=== PATIENT | male | born 1975 | race Caucasian/White ===

== ENCOUNTER → 2020-01-20 11:38 | Outpatient (CLI) | payer BC, SELFPAY ==
[2020-01-12 08:47] VITALS: BMI 31.8
--- NOTE | 2020-01-20 11:46 | RAD_ITS ---
STUDY: X-RAY - ACUTE ABDOMINAL SERIES REASON FOR EXAM: Male, 44 years old. Abdominal pain TECHNIQUE: Single view of the chest. Supine, and decubitus view(s) of the abdomen were obtained. COMPARISON: 11/07/2010. FINDINGS: The lungs are clear and expanded. Normal size heart. Normal mediastinum and sami. Normal visualized pulmonary arteries. Normal visualized aortic arch and descending thoracic aorta. There is a non-specific bowel gas pattern. The soft tissue structures of the abdomen and pelvis are unremarkable. Normal visualized osseous structures. RAD/Acute Abdomen Inc Chest IMPRESSION: Normal x-ray examination of the chest, abdomen, and pelvis. Electronically Signed: Angel Medina MD at 17:54 EST , Service support ,
[2020-01-20 15:17] LABS: Absolute Lymphocyte Count 2.71 X10^3/uL (0.83-4.51); Absolute Neutrophil Count 4.8 X10^3/uL (2.0-7.7); Basophil# 0.11 X10^3/uL; Basophil% 1.2 % (0-1); Eosinophils% 5.6 % (0-5); Hematocrit 48.8 % (40-54); Hemoglobin 16.3 g/dL (13.0-16.5); Lymphocyte # 2.71 X10^3/ul (4.0); Lymphocyte % 30.4 % (19-41); Mean Corp Hgb Conc 33.4 g/dL (32-36); Mean Corpuscular Hgb 30.1 pg (27.0-32.0); Mean Platelet Vol. 10.6 fl (6.2-12.0); Monocyte# 0.73 X10^3/uL; Monocyte% 8.2 % (0-10); NRBC Flagged by Analyzer 0 % (0-5); Neutrophil # 4.83 X10^3/uL (2.7-7.7); Neutrophil % 54.2 % (47-70); Platelet Count 384 K/mm3 (150-450); RBC Distribution Width CV 11.9 % (11.6-14.6); RBC Distribution Width SD 39.2 fl (35.1-43.9); Red Blood Count 5.42 M/mm3 (4.6-6.2); White Blood Count 8.9 K/mm3 (4.4-11.0)
[2020-01-20 15:36] LABS: ALB/GLOB Ratio 0.9 RATIO (0.9-2.4); AST(SGOT) 9 U/L (15-37); Alanine Aminotransfer ALT/SGPT 32 U/L (16-61); Albumin, Serum 4.2 g/dL (3.2-5.0); Alkaline Phosphatase 105 U/L (45-117); Anion Gap 8 (5-15); BUN 13 mg/dL (7-18); BUN/Creat Ratio 11.9 RATIO (10-20); Calcium,Total 9.5 mg/dL (8.5-10.1); Chloride 104 mmol/L (98-107); Creatinine, Serum 1.09 mg/dL (0.70-1.30); EST Glomerular Filtration Rate 78 mL/min (>60); Est Glom Filt Rate - Afr Amer 94 mL/min (>60); Globulin 4.7 g/dL (2.2-4.2); Glucose 81 mg/dL (74-106); Magnesium 2.1 mg/dL (1.6-2.6); Potassium 3.8 mmol/L (3.5-5.1); Protein, Total 8.9 g/dL (6.4-8.2); Sodium Level 139 mmol/L (136-145)
== END ==
LOC: MTLAB 11:41
PROVIDERS: PCP Family Medicine; Referring Provider Family Medicine; Visit Provider Family Medicine
DX: R10.9 Unspecified abdominal pain (principal); R19.7 Diarrhea, unspecified
CPT/HCPCS: 36415; 74022; 80053; 83735; 85025

== ENCOUNTER → 2020-02-03 15:53 | Outpatient (CLI) | payer BC, SELFPAY ==
[2020-01-12 08:47] VITALS: BMI 31.8
[2020-02-05 16:08] LABS: Endomysial Antibody IgA Negative (Negative)
[2020-02-05 21:27] LABS: Immunoglobulin A 229 mg/dL (90-386); t-Transglutaminase IgA <2 U/mL (0-3)
[2020-02-07 03:06] LABS: Beef <0.10 kU/L (Class 0); Corn <0.10 kU/L (Class 0); Egg, Whole <0.10 kU/L (Class 0); Milk (Cow) <0.10 kU/L (Class 0); Peanut <0.10 kU/L (Class 0); Pork <0.10 kU/L (Class 0); Soybean <0.10 kU/L (Class 0); Wheat <0.10 kU/L (Class 0)
[2020-02-07 10:35] LABS: Chocolate <0.10 kU/L (Class 0)
== END ==
LOC: MFPLAB 15:54
PROVIDERS: PCP Family Medicine; Referring Provider Family Medicine; Visit Provider Family Medicine
DX: R19.7 Diarrhea, unspecified (principal); R14.0 Abdominal distension (gaseous)
CPT/HCPCS: 36415; 82784; 83516; 86003; 86005; 86255

== ENCOUNTER 2020-02-04 19:35 | Emergency (ER) | payer BC, SELFPAY ==
[2020-01-12 08:47] VITALS: BMI 31.8
[2020-02-04 19:36] VITALS: BP 145/91; PULSE 83; RESP 16; TEMP 36.1; O2SAT 99; BMI 31.3
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
[2020-02-04 20:37] VITALS: BP 134/74; PULSE 80; RESP 18; O2SAT 98
== END 2020-02-04 20:38 | disposition home or self-care (01) ==
PROVIDERS: Emergency Provider Emergency Medicine; PCP Family Medicine
DX: S43.401A Unspecified sprain of right shoulder joint, initial encounter (principal); X58.XXXA Exposure to other specified factors, initial encounter; Y93.72 Activity, wrestling; Y92.9 Unspecified place or not applicable; Z87.891 Personal history of nicotine dependence
CPT/HCPCS: 73000; 99283

== ENCOUNTER → 2020-02-06 06:44 | Outpatient (CLI) | payer BC, SELFPAY ==
[2020-01-12 08:47] VITALS: BMI 31.8
[2020-02-04 19:36] VITALS: BMI 31.3
--- NOTE | 2020-02-06 06:45 | CT_ITS ---
STUDY: CT ABDOMEN AND PELVIS WITH CONTRAST REASON FOR EXAM: Male, 44 years old. 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 No prior surgery. RADIATION DOSAGE (If Supplied By Facility): CTDIvol = ( 20.09 ) mGy, DLP = ( 1240.70 ) mGycm TECHNIQUE: Transaxial images were obtained from the dome of the diaphragm to the symphysis pubis with oral contrast. Oral and amp; IV Readi-CAT and amp; 100mL Isovue-300 was administered. Sagittal and coronal images were reconstructed. Individualized dose optimization techniques were used for this CT. COMPARISON: None. FINDINGS: The visualized lung bases are unremarkable. The visualized portions of the heart are within normal limits. Normal liver. There are multiple small gallstones. Normal spleen. Normal pancreas. Normal bilateral adrenal glands. Normal right kidney. Normal left kidney. There is a small hiatal hernia. Normal small intestine. There are scattered colonic diverticula consistent with diverticulosis. Is evidence of a 16 of the wall of the sigmoid colon. This may represent either mild degree of bone diverticulitis or inflammatory bowel disease. Clinical correlation is recommended. The appendix is visualized and appears normal. There is scattered atherosclerotic calcification of the abdominal aorta, without a demonstrated aneurysm. Normal inferior vena cava. Normal retroperitoneum. Normal urinary bladder. There are central prostatic calcifications. Normal abdominal wall. There are degenerative changes of the visualized lumbar spine. CT/Abdomen/Pelvis WITH Contrast IMPRESSION: Multiple small gallstones. Sigmoid diverticulosis with thickening of the sigmoid wall suggestive of either mild diverticulitis or inflammatory bowel disease. Electronically Signed: Masood Holly, at 8:26 EST , Service support ,
== END ==
PROVIDERS: PCP Family Medicine; Referring Provider Family Medicine; Visit Provider Family Medicine
DX: R19.8 Other specified symptoms and signs involving the digestive system and abdomen (principal)
CPT/HCPCS: 74177; Q9967

== ENCOUNTER 2020-03-18 09:00 | Outpatient (RCR) | payer BC, SELFPAY ==
--- NOTE | 2020-03-03 17:36 | HP.PTEVAL_ITS ---
Patient's Visit Information KOSTAS HENDRIX Jr. is a 44 year old M referred to Physical Therapy by Dr. Rachel Santa DO with a diagnosis of R SC sprain/SCM pain. Date of Evaluation: 03/03/20 Physical Therapist: DAJUAN Roach - Visit Plan Frequency: 3x /Week Duration: 4 Weeks Plan: 3X/ week for 3-4 weeks for manual therapy to the SCM, mid trap and scapular area to tolerance, AAROM of the R shoulder, postural exercises and RC strength as tolerated, modalities for pain control, US, E-stim per order if needed for pain control with HEP - Subjective Pt has pain in his shoulder and where collar bone connects to the sternum. He was wrestling and felt a pop and could not breathe on Feb 02. He firgured it was muscles. He was in pain and ended up in the ER the next night. He had sharp and searing pain. They took x-rays and said no dilocation and took more x-rays yesterday. She wants an MRI but has to do PT first. He wants to sleep, shave his head, and sit without pain. He can not sit in one spot for a long time and increases his TAPIA. He can not reach too far behind his back. She feels there are some muscl tears where they meet her collar bone and will need an MRI. He has no appt scheduled until after PT. He is off work through the month as he lifts 50# weights repetitivly. He wears a sling because if her lets his arm hang he gets increase pain. He can not sleep on his R side. He wakes up as soon as he moves at night. He is L handed. Pt feels like he is choking sometimes in the middle of the night. He reports that he has a hard time swallowing. - Pain R shoulder pain. Pain Intensity (Out of 10): 5 Pain Intensity Range: 7 - Objective C-spine AROM: flexion 100% (increase pain), Extension 25% (increase pain), SB B 50% increase pain shoulder blade to the R and chest pain to the L, R rotaion 75% and L rotation 75% with increase sternum pain. 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 R shoulder flexion approx 160 degrees but increase pain, horizontal abd able to touch the other shoulder but barely, Abduction to approx 170 and incease pinching at end range, IR PSIS, ER 31 degrees. L shoulder AROM: full flexion, abd, IR to T8, ER 40 degrees, Full horizontal shoulder adduction. R shld flex 4-/5 (therapist did not use full pressure), R shld abd 3+/5 ( increase anterior chest pain and shoulder pain), ER and IR 4/5 with increase sternum pain. R SC joint seems higher than the L.... R SC joint is extremely painful to the touch. - Goals Goal 1:: I HEP Goal Time Frame: 4-6 Weeks Goal 2:: Be able to raise R arm full elevation (flexion and abduction) without pain Goal Time Frame: 4-6 Weeks Goal 3:: Be able to sleep through the night without pain Goal Time Frame: 4-6 Weeks Goal 4:: Pt to have full c-spine AROM without SC joint or scapular pain Goal Time Frame: 4-6 Weeks Goal 5:: Be able to walk around and complete ADL's without the need for the sling for arm support Goal Time Frame: 4-6 Weeks - Rehabilitation Potential Rehabilitation Potential: Good - Anticipated Interventions Patient/Client Instruction: Educate patient on: Condition, Plan of Care For the Purpose of:: To decrease pain, To decrease swelling/inflammation, To increase ROM, To improve nutrient delivery to tissue, To improve muscle performance and motor function, To improve ability to perform ADL's, To increase tolerance to activity/condition/position, To improve performance and independence with ADL's, To decrease level of supervision to perform tasks, To improve ability of physical actions for home/community/work/leisure, To improve health of tissue, To decrease soft tissue restriction, To increase flexibility/ROM Therapeutic Exercise to Include: Strength training, Postural training, Flexibilty training, Passive ROM, Active ROM, Scapular Strength/Stabilization For the Purpose of:: To decrease pain, To decrease swelling/inflammation, To increase ROM, To improve nutrient delivery to tissue, To improve muscle performance and motor function, To improve ability to perform ADL's, To increase tolerance to activity/condition/position, To improve performance and independence with ADL's, To decrease level of supervision to perform tasks, To improve ability of physical actions for home/community/work/leisure, To improve health of tissue, To decrease soft tissue restriction, To increase flexibility/ROM Manual Therapy Techniques to Include: Passive ROM, Soft tissue mobilization For the Purpose of:: To decrease pain, To increase ROM, To improve nutrient delivery to tissue, To improve muscle performance and motor function IF ES: Yes Cryotherapy (ice pack, ice massage): Yes Thermo therapy (hot pack): Yes Ultrasound (thermal/non thermal): Yes For the Purpose of:: To decrease pain, To decrease swelling/inflammation, To increase ROM, To improve nutrient delivery to tissue, To improve muscle performance and motor function Thank you for the opportunity to evaluate your patient. For Medicare and Medicare HMO plans, please review the plan of care and approve it. It will need to be FAXED BACK to us at [phone] for Medicare purposes. For Medicare only, by signing this I certify the plan of care. Please let me know if there are questions or concerns regarding this plan of care. Physician Signature: Date:
--- NOTE | 2020-04-27 10:55 | HP.PT.NRP ---
KOSTAS HENDRIX was seen in my office for initial evaluation on 03/03/20. The following Plan of Care was established for this patient: Initial Frequency: 3x /Week Initial Duration: 4 Weeks Patient/Client Instruction: Educate patient on: Condition, Plan of Care For the Purpose of:: To decrease pain, To decrease swelling/inflammation, To increase ROM, To improve nutrient delivery to tissue, To improve muscle performance and motor function, To improve ability to perform ADL's, To increase tolerance to activity/condition/position, To improve performance and independence with ADL's, To decrease level of supervision to perform tasks, To improve ability of physical actions for home/community/work/leisure, To improve health of tissue, To decrease soft tissue restriction, To increase flexibility/ROM Therapeutic Exercise to Include: Strength training, Postural training, Flexibilty training, Passive ROM, Active ROM, Scapular Strength/Stabilization For the Purpose of:: To decrease pain, To decrease swelling/inflammation, To increase ROM, To improve nutrient delivery to tissue, To improve muscle performance and motor function, To improve ability to perform ADL's, To increase tolerance to activity/condition/position, To improve performance and independence with ADL's, To decrease level of supervision to perform tasks, To improve ability of physical actions for home/community/work/leisure, To improve health of tissue, To decrease soft tissue restriction, To increase flexibility/ROM Manual Therapy Techniques to Include: Passive ROM, Soft tissue mobilization For the Purpose of:: To decrease pain, To increase ROM, To improve nutrient delivery to tissue, To improve muscle performance and motor function IF ES: Yes Cryotherapy (ice pack, ice massage): Yes Thermo therapy (hot pack): Yes Ultrasound (thermal/non thermal): Yes For the Purpose of:: To decrease pain, To decrease swelling/inflammation, To increase ROM, To improve nutrient delivery to tissue, To improve muscle performance and motor function This patient was last seen in our office 03/18/20. Pertinent comments regarding their Physical therapy will appear below: [facility] PT as pt did not schedule any appointments in 2020 At this point I will be discontinuing this patient from physical therapy. I would be happy to see this patient again in the future if found appropriate by the physician. Thank you! Angelic Ortiz, MPT
== END 2020-03-18 19:00 | disposition home or self-care (01) ==
LOC: PT 09:00
PROVIDERS: PCP Family Medicine; Referring Provider Orthopaedic Surgery; Visit Provider Orthopaedic Surgery
DX: S43.61XD Sprain of right sternoclavicular joint, subsequent encounter (principal)
CPT/HCPCS: 97035; 97110; 97140; 97161

== ENCOUNTER → 2020-03-31 06:28 | Outpatient (CLI) | payer BC, SELFPAY ==
--- NOTE | 2020-03-31 06:30 | MRI_ITS ---
STUDY: MRI RIGHT UPPER EXTREMITY (ATTENTION RIGHT STERNOCLAVICULAR JOINT, CLAVICLE, SCAPULA) REASON FOR EXAM: Pain of right scapula, clavicle and sternoclavicular joint, injury 02/03/2020 TECHNIQUE: Standardized fat and water weighted pulse sequences were obtained in all 3 orthogonal planes. COMPARISON: Radiographs 03/02/2020. FINDINGS: There is a sprain of the right sternoclavicular joint capsule (inversion recovery axial images 16, 17) without joint effusion or subluxation. There is a subchondral bone contusion of the right sternum and a mild subchondral bone contusion of the proximal right clavicle (inversion recovery coronal image 30). Otherwise, unremarkable right clavicle. Normal right acromioclavicular joint. Normal right scapula and periscapular musculature. Normal visualized proximal right humerus and right glenohumeral articulation. There is no demonstrated right rotator cuff tear. There is a lower cervical disc bulge (T2 sagittal images 32-34). MRI/Upper Ext/No Jt/ wo IMPRESSION: Sprain of the right sternoclavicular joint capsule with subchondral bone contusions of the right sternum and proximal right clavicle. Electronically Signed: Buddy Lovelace MD at 8:37 EST Tel , Service support ,
== END ==
PROVIDERS: PCP Family Medicine; Referring Provider Orthopaedic Surgery; Visit Provider Orthopaedic Surgery
DX: M54.2 Cervicalgia (principal); S43.61XD Sprain of right sternoclavicular joint, subsequent encounter
CPT/HCPCS: 73218

== ENCOUNTER 2020-05-11 12:39 | Outpatient (RCR) | payer BC, SELFPAY ==
--- NOTE | 2020-05-11 14:37 | HP.OTFCE_ITS ---
Floor (Occasional 1-33% of Day): 55# Floor (Frequent 34-66% of Day): 25# Floor (Constant 67-100% of Day): 10# Floor PDL: Medium Knee (Occasional 1-33% of Day): 55# Knee (Frequent 34-66% of Day): 25# Knee (Constant 67-100% of Day): 10# Knee PDL: Medium Waist (Occasional 1-33% of Day): 55# Waist (Frequent 34-66% of Day): 25# Waist (Constant 67-100% of Day): 10# Waist PDL: Medium Shoulder (Occasional 1-33% of Day): 45# Shoulder (Frequent 34-66% of Day): 22# Shoulder (Constant 67-100% of Day): 9# Shoulder PDL: Medium Overhead (Occasional 1-33% of Day): 35# Overhead (Frequent 34-66% of Day): 18# Overhead (Constant 67-100% of Day): 7# Overhead PDL: Light-Medium Comments: pt demo good lifting mechanics with all lift levels Bending: Frequent Ability (34-66% of day) Squatting: Frequent Ability (34-66% of day) Kneeling: Frequent Ability (34-66% of day) Reaching out: Frequent Ability (34-66% of day) Reaching up: Frequent Ability (34-66% of day) Sitting: Frequent Ability (34-66% of day) Walking: Frequent Ability (34-66% of day) Standing: Frequent Ability (34-66% of day) Duration Sedentary Sedentary Light Light Light Medium Medium Medium Heavy Very Heavy Heavy Occasional (0-33% of day) Frequent (34-66% of day) Constant (67-100% of day) 10 # Negligible Negligible 15 # 8 # Negligible 20 # 10# Negli. 35 # 18 # 7 # 50 # 25 # 10 # 75 # 100 # >100 # 38 # 50 # >50 # 15 # 20 # >20 # Height: 1.7 m Weight:: 90.718 kg Hand Dominance: left Medical History Including Restrictions: This 44 year old male was seen for OT for a FCE. Pt states he was in good health until he had a right shoulder injury. 2019. Pt states he injured his arm wrestling a teen. pt states he went to the ER the next day. pt states xray was taken with no fx. pt states he went through 3 weeks of physical therapy without a change in his progress- pt had MRI that indicated a sprain of the right sternoclavicular joint capsule with subchondral bone contusions of the right sternum and proximal right clavicle. pt states he does continue with stretching to decrease tightness but no other exercises. Diagnoses: Sprain of right sternoclavicular joint 2019. Symptoms: Tightness of upper scapula that radiates up his neck to the skull and gives him minor headachs. pt states he trys to roll his neck to losen the muscle Pain: Pt states pain is 2/10 currently. Pt states pain increases to 5/10 Work History: Pt is employed at [employer] pt states he has worked there for three years. 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 Pt states he worked an average 52-60 hours and worked 7 days a week. Pt states his job requires 45-55#. pt states he states he stands and lifts parts and picking up and moving to the side- pt has concerns with his ability to perform the quality of work. Behavioral: Pt is cooperative and put good effort into the assessment. ADLS: Pt states he is a single father of 3 children ages 21/18/16/ lives in a two-story home. Pt states he has three entry steps. Pt states his bedroom and bathroom is on 2nd floor. pt states he is JUAN with showering, pt states he is ind. with dressing. pt states he can do dishes, clean, and carry laundry. pt drives ind. and he states he can perform grocery shopping. pt states lifting with left pulls, but not as much pain in bones. ROM: pt currently is not demo with limited ROM of cervical, thoracic, lumbar, UE and LE ROM. Strength: PT demo with MMT at 5/5 in UB and LB bilaterally throughout. Right Circulation Sales Representative Strength Average: 89.33 Right Circulation Sales Representative Strength Percentile: 11% Left Circulation Sales Representative Strength Average: 94.66 Left Circulation Sales Representative Strength Percentile: 24% Right Lateral Pinch Average: 23.33 Right Lateral Pinch Percentile: 75% Left Lateral Pinch Average: 20.00 Left Lateral Pinch Percentile: 50% Right Tripod Pinch Average: 20.00 Right Tripod Pinch Percentile: 50% Left Tripod Pinch Average: 22.00 Left Tripod Pinch Percentile: 75% Sensation: denies Fine Motor: denies Balance: no loss of balance Bending: Pt demo the ability to bend forward three times, ten times and ten times rapidly. pt can bend forward on a frequent ability. Squatting: pt demo the ability to squat three times, ten times and ten times rapidly. pt can squat on a frequent ability. Kneeling: pt demo the ability to kneel three times, ten times and ten rapidly. pt did c/o of muscles burning from the tasks. Reaching out/up: pt demo the ability to reach out/up three times, ten times and ten times rapidly. pt states he did become SOB but reports no physical activity since he hurt his shoulder. Walking: no concerns with ambulation- can walk on a frequent ability. Standing: no concners with standing - pt can stand on a frequent ability. Sitting: pt demo the ability to sit for 40 min with no expressed or apparent discomfort. pt can sit on a frequent ability Climbing Stairs: no issues with stairs. pt ascended and descended 10 steps with a reciprocal step pattern and no use of rails. Floor Lift: Pt demo the ability to lift 55# from floor level with good lifting mechanics Knee Lift: Pt demo the ability to lift 55# from knee level with good lifting mechanics Waist Lift: Pt demo the ability to lift 55# from waist level with good lifting mechanics Shoulder Lift: Pt demo the ability to lift 45# from shoulder level with good lifting mechanics Overhead Lift: Pt demo the ability to lift 35# from overhead level with good lifting mechanics Carrying: pt demonstrated the ability to carry 35# for 40 feet with good ability. Comments: pt tolerated assessment well- had no c/o of pain. reported upper trap felt tight but nothing he felt would limit him with his job.
--- NOTE | 2020-05-11 14:37 | HP.OTFCE.D ---
FCE D/C Summary - Discharge KOSTAS HENDRIX Jr. was seen for a one time visit for an FCE on 05/11/20 and is discharged.
== END 2020-05-11 19:00 | disposition home or self-care (01) ==
LOC: OT 12:39
PROVIDERS: PCP Family Medicine; Visit Provider Orthopaedic Surgery
DX: S43.61XD Sprain of right sternoclavicular joint, subsequent encounter (principal)
CPT/HCPCS: 97750

== ENCOUNTER → 2020-09-17 10:05 | Outpatient (CLI) | payer BC, SELFPAY ==
[2020-09-17 12:25] LABS: Absolute Lymphocyte Count 2.43 X10^3/uL (0.83-4.51); Absolute Neutrophil Count 5.8 X10^3/uL (2.0-7.7); Basophil% 1.1 % (0-1); Eosinophil# 0.33 X10^3/uL; Eosinophils% 3.6 % (0-5); Hematocrit 43.7 % (40-54); Hemoglobin 14.6 g/dL (13.0-16.5); Lymphocyte # 2.43 X10^3/ul (0.83-4.51); Lymphocyte % 26.4 % (19-41); Mean Corp Hgb Conc 33.4 g/dL (32-36); Mean Corpuscular Hgb 30.2 pg (27.0-32.0); Mean Corpuscular Volume 90.5 fL (80-94); Mean Platelet Vol. 10.3 fl (6.2-12.0); Monocyte# 0.57 X10^3/uL; Monocyte% 6.2 % (0-10); NRBC Flagged by Analyzer 0 % (0-5); Neutrophil # 5.76 X10^3/uL (2.7-7.7); Neutrophil % 62.5 % (47-70); Platelet Count 386 K/mm3 (150-450); RBC Distribution Width CV 11.9 % (11.6-14.6); RBC Distribution Width SD 39.6 fl (35.1-43.9); Red Blood Count 4.83 M/mm3 (4.6-6.2); White Blood Count 9.2 K/mm3 (4.4-11.0)
[2020-09-17 12:30] LABS: Vitamin B12 344 pg/mL (211-911); Vitamin D,25 Hydroxy 20.7 ng/mL
[2020-09-17 13:02] LABS: AST(SGOT) 11 U/L (15-37); Alanine Aminotransfer ALT/SGPT 24 U/L (16-61); Albumin, Serum 3.8 g/dL (3.2-5.0); Alkaline Phosphatase 97 U/L (45-117); Anion Gap 5 (5-15); BUN 10 mg/dL (7-18); BUN/Creat Ratio 11.2 RATIO (10-20); Chloride 105 mmol/L (98-107); Creatinine, Serum 0.89 mg/dL (0.70-1.30); EST Glomerular Filtration Rate 98 mL/min (>60); Est Glom Filt Rate - Afr Amer 118 mL/min (>60); Globulin 3.9 g/dL (2.2-4.2); Glucose 95 mg/dL (74-106); Potassium 4.7 mmol/L (3.5-5.1); Protein, Total 7.7 g/dL (6.4-8.2); Sodium Level 138 mmol/L (136-145); T4 Free Direct 0.95 ng/dL (0.76-1.46); Thyroid Stim Hormone (TSH) 1.43 uIU/mL (0.358-3.74)
== END ==
LOC: MFPLAB 10:06
PROVIDERS: PCP Family Medicine; Visit Provider Family Medicine
DX: R53.83 Other fatigue (principal)
CPT/HCPCS: 36415; 80053; 82306; 82607; 84439; 84443; 85025

== ENCOUNTER 2021-03-22 16:22 | Outpatient (CLI) | payer BC, SELFPAY | END 2021-03-22 23:59 | disposition short-term general hospital (02) | PROVIDERS: PCP Family Medicine; Referring Provider Family Medicine; Visit Provider Nurse Practitioner Family | DX: U07.1 COVID-19 (principal) | CPT/HCPCS: 87635; U0003; U0005 ==

== ENCOUNTER 2023-08-04 10:02 | Emergency (ER) | payer OTHER, SELFPAY ==
[2023-08-04 10:02] VITALS: BP 193/107; BP 200/105; PULSE 62; PULSE 71; RESP 14; RESP 18; TEMP 36.1; O2SAT 100; O2SAT 97; BMI 29.4
--- NOTE | 2023-08-04 10:30 | EDS_ITS ---
HPI HPI - GI History of Present Illness Chief Complaint: Abd Pain Detail of Chief Complaint: Left flank pain Informant: patient Abdominal Pain/Flank Pain Current Severity: 12/26 Narrative Narrative: Patient presents to the emergency department complaint of left flank pain that started this morning suddenly. Patient's had vomiting with it. Planes of urinary frequency or feeling like he needs to go and sometimes cannot. Denies any blood in stool. Had normal bowel movement today x 2. Never had pain like this before. He had no fever or chills or sweats. Currently rates pain a 10 out of 10. PFSH PFS Medical History (Updated 08/04/23 @ 12:[address] Marily Logan, DO) Femur fracture Diarrhea Fatigue Home Medications ?Medication ?Instructions ?Recorded ?Last Taken ?Type meloxicam 15 mg tablet (Mobic) 15 mg PO DAILY #21 tabs 04/05/20 Unknown Rx hydrocodone-acetaminophen 5-325mg 1 tab PO Q4H PRN PRN Pain 2 days 08/04/23 Unknown Rx 5mg-325mg #10 TABLETS ondansetron 4 mg disintegrating 4 mg PO Q8H PRN PRN Nausea #10 tabs 08/04/23 Unknown Rx tablet Allergy/AdvReac Type Severity Reaction Status Date / Time No Known Allergies Allergy Verified 08/04/23 10:02 Social History (Updated 04/05/20 @ 13:48 by Heber FONSECA, PA) Smoking Status: Former smoker alcohol intake: never ROS ROS ED Review of Systems ROS Unobtainable: other Constitutional Constitutional ED: Reports lethargy; Denies chills, fever(s), sweats or weight loss Eyes Eyes: Denies blurry vision, change in vision or diplopia ENT ENT ED: Denies rhinorrhea or sore throat Cardiovascular Cardiovascular: Denies chest pain, orthopnea or racing heartbeat Respiratory/Chest Respiratory/Chest: Denies cough, dyspnea, dyspnea on exertion, orthopnea or sputum Gastrointestinal Gastrointestinal: Reports abdominal pain, nausea and vomiting; Denies diarrhea Genitourinary Genitourinary ED: Reports urinary frequency; Denies dysuria or hematuria Musculoskeletal Musculoskeletal: Reports back pain; Denies arthralgias, myalgias or neck pain Integumentary Denies abscess, Abrasions or rash Neurologic Neurologic: Denies headache(s) or weakness Psychiatric Psychiatric: Denies anxiety, depression or suicidal thoughts Endocrine Endocrinology: Denies polydipsia, polyphagia or polyuria Hematologic/Lymphatic Hematologic/Lymphatic: Denies easy bleeding, easy bruising or lymphadenopathy Allergic/Immunologic Allergic/Immunologic ED: Denies mouth swelling, tongue swelling or urticaria EXAM Physical Exam Const Vital Signs: 08/04/23 10:02 08/04/23 10:02 08/04/23 12:02 Temperature 97 F L Temperature Source Temporal Pulse Rate 71 62 58 L Respiratory Rate 14 18 16 Blood Pressure 200/105 H 193/107 H 125/64 H Blood Pressure Mean 136 135 84 Pulse Ox 100 97 98 Oxygen Delivery Method Room Air Room Air Room Air Positive well nourished and well developed General Appearance ED: well developed and NAD HEENT Reports TM's clear and moist mucous membranes normocephalic and atraumatic; Negative for trauma or tenderness Tympanic Membrane ED: Yes TM's clear Eyes PERRL and EOMs intact bilaterally General Eye ED: Negative for pale conjunctiva or scleral icterus Neck no lymphadenopathy, supple and no JVD General: Negative for tenderness Chest Wall inspection of chest normal and palpation of chest normal Chest: Negative for tenderness Resp normal respiratory effort and clear to auscultation bilaterally Effort and Inspection: Negative for respiratory distress or pain with movement Auscultation: Negative for rhonchi, wheezes or diminished lung sounds Cardio regular rate, regular rhythm, S1 normal heart sound, S2 normal heart sound and no murmurs Peripheral Pulses: pulses 2+ throughout GI normal to inspection, nondistended, normoactive bowel sounds, soft to palpation, non-tender, non-distended and no masses GI Narrative: Mild diffuse tenderness over the left lower abdomen with some mild guarding. There is no rebound, rigidity, or pineal signs. No mass palpated. Back/Spine no thoracic nor lumbar tenderness General Back: CVA tenderness left Extremity normal to inspection General Extremety ED: Negative for edema General Extremity: Negative for edema Neuro oriented x3, CN's II-XII intact bilaterally, no sensory deficits noted and gait normal Sensorium / Orientation: awake, alert, oriented to person, oriented to place and oriented to time Motor Exam: strength 5/5 throughout and strength abnormal Psych mental status grossly normal Skin no rashes or lesions noted and no wounds MDM MDM MDM Narrative Medical decision making narrative: Patient presents with sudden onset of severe left-sided flank and abdomen pain. Pain radiates towards his groin. Nausea and vomiting. Clinically suspect likely a kidney stone. Also in the differential would be diverticulitis or other acute intra-abdominal process such as bowel obstruction or bowel perforation. IV line established. Patient was medicated with Zofran and Toradol as well as Dilaudid. Will obtain basic labs as well as urinalysis and a CT scan of the abdomen pelvis to evaluate further. CBC with differential white count 10.1 with hemoglobin of 14 and platelet count 395. Chemistries unremarkable. Urinalysis negative for infection. CT flank obtained showed a 2 mm left distal ureter stone. Patient did well with hydromorphone and Toradol and Zofran and currently is pain-free. Will send home with urine strainers and a prescription for Zofran as well as [place] for severe pain. Advised to return if worsening pain, fever, vomiting, or condition worsen anyway. Will refer to urology for follow-up. Lab Data Attestation: I reviewed the patient's lab results. Labs: Laboratory Results - last 24 hr 08/04/23 08/04/23 10:20 11:52 WBC 10.1 RBC 4.80 Hgb 14.3 Hct 43.5 MCV 90.6 MCH 29.8 MCHC 32.9 RDW Std Deviation 40.2 RDW Coeff of Bill 12.0 Plt Count 395 MPV 9.7 Immature Gran % (Auto) 0.500 Neut % (Auto) 70.4 H Lymph % (Auto) 19.7 [place] % (Auto) 6.3 Eos % (Auto) 2.2 Baso % (Auto) 0.9 Absolute Neuts (auto) 7.1 Absolute Lymphs (auto) 1.99 Nucleated RBC % 0 Sodium 136 Potassium 4.0 Chloride 107 Carbon Dioxide 26.0 Anion Gap 3 L BUN 15 Creatinine 1.05 Estim Creat Clear Calc 89.74 Est GFR (MDRD) Af Amer 97 Est GFR (MDRD) Non-Af 80 BUN/Creatinine Ratio 14.3 Glucose 135 H Calcium 9.1 Urine Color Yellow Urine Clarity Clear Urine pH 5.0 Ur Specific [place] 1.025 Urine Protein 15 H Urine Glucose (UA) Normal Urine Ketones 5 H Urine Occult Blood 50 H Urine Nitrite Negative Urine Bilirubin Negative Urine Urobilinogen Normal Ur Leukocyte Esterase Negative Urine RBC 0 SEEN Urine WBC 0 SEEN Ur Squamous Epith Cells 0 SEEN Urine Bacteria 0 SEEN Urine Mucus 0 SEEN Radiography Diagnostic Testing: Clinical Impression(s) from Imaging Studies Abdomen/Pelvis CT 08/04/23 10:30 IMPRESSION: 1. Obstructive 2 mm distal left ureteral stone. 2. Left nephrolithiasis. 3. Cholelithiasis. Electronically Signed: Anton Trinidad MD at 11:27 EDT , Discharge Plan Triage Chief Complaint: Abd Pain ED Provider: Marily Logan Dx/Rx/DC Orders Clinical Impression: Urolithiasis Instructions: ED Kidney Stone with Pain Prescriptions: New hydrocodone-acetaminophen 5-325 mg tablet 1 tab PO Q4H PRN PRN (Reason: Pain) 2 Days Qty: 10 0RF ondansetron 4 mg tablet,disintegrating 4 mg PO Q8H PRN PRN (Reason: Nausea) Qty: 10 0RF No Action meloxicam [Mobic] 15 mg tablet 15 mg PO DAILY Qty: 21 0RF Primary Care Provider: Marty Tan Referrals: Eder Arizmendi MD [Med Staff - Active Staff] - As Needed Marty Tan MD [Primary Care Provider] - Print Language: Azerbaijani Disposition Disposition: Home, Self Care
--- NOTE | 2023-08-04 10:30 | CT_ITS ---
EXAM: CT ABDOMEN AND PELVIS WITHOUT INTRAVENOUS CONTRAST CLINICAL INDICATION: left flank pain TECHNIQUE: Helically acquired images were obtained of the abdomen and pelvis without intravenous contrast. This CT exam was performed using one or more of the following dose reduction techniques: automated exposure control, adjustment of the mA and/or kV according to patient size, and/or use of iterative reconstruction technique. COMPARISON: No relevant prior studies available. FINDINGS: LOWER THORAX: Normal. Lung bases are clear. No cardiomegaly. No pericardial effusion. ABDOMEN: LIVER: Normal. Homogeneous. GALLBLADDER AND BILE DUCTS: Small calcified and noncalcified stones are noted within the gallbladder. PANCREAS: Normal. No focal cystic mass. SPLEEN: Normal. Normal size without focal cystic or solid mass. ADRENALS: Normal. No nodules. KIDNEYS AND URETERS: 2 mm distal left ureteral stone identified associated with minimal distention of the left renal collecting system and mild left perinephric edema. 2 mm nonobstructive left renal stone. Right kidney and collecting system are normal. STOMACH AND BOWEL: Normal. No bowel distention. No focal inflammatory change. PELVIS: APPENDIX: Appendix is visualized and normal in appearance. BLADDER: Urinary bladder is contracted. REPRODUCTIVE: Unremarkable as visualized. No mass. ABDOMEN and PELVIS: INTRAPERITONEAL SPACE: Normal. No ascites or other fluid collection. No free air. BONES/JOINTS: Disc space narrowing, vacuum disc phenomenon and endplate sclerosis with vertebral body hypertrophy noted at L5-S1. Mild retrolisthesis of L5 on S1. SOFT TISSUES: Normal. No discrete abdominal or pelvic wall hernia. VASCULATURE: Normal. Abdominal aorta is non-dilated. LYMPH NODES: Normal. No enlarged lymph nodes. CT/Abdomen/Pelvis without Cont IMPRESSION: 1. Obstructive 2 mm distal left ureteral stone. 2. Left nephrolithiasis. 3. Cholelithiasis. Electronically Signed: Anton Trinidad MD at 11:27 EDT ,
[2023-08-04] MEDS: Ondansetron 4 MG/2 ML Vial IV (10:39)
[2023-08-04] MEDS: Ketorolac 30 MG/ML Syringe IV (10:39)
[2023-08-04] MEDS: HYDROmorphone 1 MG/ML Syringe IV (10:39)
[2023-08-04 10:44] LABS: Absolute Lymphocyte Count 1.99 X10^3/uL (0.83-4.51); Absolute Neutrophil Count 7.1 X10^3/uL (2.0-7.7); Basophil# 0.09 X10^3/uL; Basophil% 0.9 % (0-1); Eosinophil# 0.22 X10^3/uL; Eosinophils% 2.2 % (0-5); Hematocrit 43.5 % (40-54); Hemoglobin 14.3 g/dL (13.0-16.5); Lymphocyte # 1.99 X10^3/ul (0.83-4.51); Lymphocyte % 19.7 % (19-41); Mean Corp Hgb Conc 32.9 g/dL (32-36); Mean Corpuscular Hgb 29.8 pg (27.0-32.0); Mean Corpuscular Volume 90.6 fL (80-94); Mean Platelet Vol. 9.7 fl (6.2-12.0); Monocyte# 0.64 X10^3/uL; Monocyte% 6.3 % (0-10); NRBC Flagged by Analyzer 0 % (0-5); Neutrophil # 7.13 X10^3/uL (2.7-7.7); Neutrophil % 70.4 % (47-70); Platelet Count 395 K/mm3 (150-450); RBC Distribution Width SD 40.2 fl (35.1-43.9); White Blood Count 10.1 K/mm3 (4.4-11.0)
[2023-08-04] MEDS: 0.9% Normal Saline (1000mL) 1,000 ML 125 ML IV (10:44)
[2023-08-04 10:54] LABS: Anion Gap 3 (5-15); BUN 15 mg/dL (7-18); BUN/Creat Ratio 14.3 RATIO (10-20); Calcium,Total 9.1 mg/dL (8.5-10.1); Chloride 107 mmol/L (98-107); Creatinine, Serum 1.05 mg/dL (0.70-1.30); EST Glomerular Filtration Rate 80 mL/min (>60); Est Glom Filt Rate - Afr Amer 97 mL/min (>60); Estimated Creatinine Clearance 89.74 ml/min; Glucose 135 mg/dL (74-106); Sodium Level 136 mmol/L (136-145)
[2023-08-04 12:02] VITALS: BP 125/64; PULSE 58; RESP 16; O2SAT 98
[2023-08-04 12:03] LABS: Bacteria 0 SEEN /hpf (None Seen); Mucous, Urine 0 SEEN /hpf (<or=2+); Red Blood Cells-Urine 0 SEEN /hpf (0-5); Squamous Epithelial Cells - UA 0 SEEN /hpf (0-5); White Blood Cells 0 SEEN /hpf (0-5)
[2023-08-04 12:40] LABS: Color, Urine Yellow (Yellow); Glucose, Dipstick Normal (Normal); Ketone-Dipstick 5 mg/dl (Negative); Leukocyte Esterase-Dipstick Negative /ul (Negative); Nitrite-Dipstick Negative (Negative); Occult Blood-Urine 50 /ul (Negative); Protein-Dipstick 15 mg/dl (Negative); Specific Gravity, Urine 1.025 (1.002-1.030); Urine Bilirubin Dipstick Negative (Negative); Urine Clarity Clear (Clear); Urine Urobilinogen Normal (Normal)
[2023-08-04 13:09] VITALS: BP 145/87; PULSE 79; RESP 16; TEMP 35.8; O2SAT 98
== END 2023-08-04 13:11 | disposition home or self-care (01) ==
PROVIDERS: Emergency Provider Emergency Medicine; PCP Family Medicine; Visit Provider Emergency Medicine
DX: N20.1 Calculus of ureter (principal); Z87.891 Personal history of nicotine dependence
CPT/HCPCS: 74176; 80048; 81001; 85025; 96361; 96374; 96375; 99282; A4216; J2405